=== PATIENT | female | born 1955 | race Caucasian/White ===

== ENCOUNTER 2018-07-27 18:00 | Emergency (ER) | payer OTHER ==
[~2018-07-27] VITALS: Ht 160 cm; Wt 62.7 kg
--- NOTE | 2018-07-27 18:23 | NUR ---
pt refusing blood draw and refusing to provide urine sample.
--- NOTE | 2018-07-27 18:33 | NUR ---
One bag with pt belongings locked in secure storage.
--- NOTE | 2018-07-27 18:37 | NUR ---
pt presents with c/o of wanting to be 'euthanized.' pt reports she does not want to live anymore because she has chronic back pain. pt talks about the of her mother and is very tearful. pt has the smell of alcohol on her breath and reports that she has been drinking wine today in an attempt to kill herself. pt is uncooperative. pt has 3 superficial self inflicted cuts on the left arm/wrist. pt has been secured in room with metal godoy in the down position with a sitter at bedside.
--- NOTE | 2018-07-27 18:45 | NUR ---
SUICIDE/SECURITY MEAL TRAY ORDERED FOR PT
--- NOTE | 2018-07-27 18:58 | NUR ---
preceptor rn: pt finally allowed phlembotomy to collect blood, still refusing to provide ua. sitter at doorway, bedside report to GOPAL Schwab pt care transferred at this time.
[2018-07-27 19:04] LABS: BASOPHILS # (AUTO) 0.02 x10^3/uL (0-0.1); BASOPHILS % (AUTO) 1 % (0-1); EOSINOPHILS % (AUTO) 0 % (1-7); LYMPHOCYTES # (AUTO) 1.76 x10^3/uL (1-3.4); LYMPHOCYTES % (AUTO) 38 % (22-44); MD NO; MEAN CORPUSCULAR HEMOGLOBIN 34.1 pg (27.0-34.8); MEAN CORPUSCULAR HGB CONC 32.6 g/dL (32.4-35.8); MEAN CORPUSCULAR VOLUME 104.7 fL (80-100); MEAN PLATELET VOLUME 7.6 fL (7.4-10.4); MONOCYTES # (AUTO) 0.25 x10^3/uL (0.2-0.8); MONOCYTES % (AUTO) 5 % (2-9); NEUTROPHILS # (AUTO) 2.57 x10^3/uL (1.8-6.8); NEUTROPHILS % (AUTO) 56 % (42-75); PLATELET COUNT 137 x10^3/uL (130-400); RED BLOOD COUNT 4.67 x10^6/uL (3.82-5.3); RED CELL DISTRIBUTION WIDTH 16.6 % (9.6-15.2)
[2018-07-27 19:12] LABS: ALBUMIN 3.3 g/dL (3.4-5.0); CALCIUM 9.1 mg/dL (8.5-10.1); CHLORIDE 108 mmol/L (98-107)
--- NOTE | 2018-07-27 19:16 | NUR ---
report from kelsey holliday refused to provide urine sample
[2018-07-27 19:26] LABS: ALANINE AMINOTRANSFERASE 30 U/L (12-78); ALKALINE PHOSPHATASE 121 U/L (45-117); ANION GAP 12 mmol/L (5-15); BILIRUBIN,TOTAL 1.1 mg/dL (0.2-1.0); CREATININE 0.64 mg/dL (0.55-1.02); TOTAL PROTEIN 6.9 g/dL (6.4-8.2)
[2018-07-27 19:27] LABS: SALICYLATE LEVEL < 1.7 mg/dL (2.8-20.0)
[2018-07-27] MEDS ORDERED: DIPH,PERTUSS(ACELL),TET VAC/PF 0.5 ML IM-VACC ONE ×2 (19:27→19:30)
[2018-07-27] MEDS ORDERED: LIDOCAINE-MPF 1%, 2ML ONE (19:27)
[2018-07-27] MEDS ORDERED: OXYcodone/APAP 5/325MG TABLET ONE (19:27)
[2018-07-27] MEDS ORDERED: LIDOCAINE-MPF 1%, 5ML ONE (19:28)
[2018-07-27] MEDS ORDERED: LIDOCAINE-MPF 1%, 5ML INFIL ONE (19:30)
[2018-07-27] MEDS ORDERED: OXYcodone/APAP 10/325MG TABLET PO ONE (19:30)
[2018-07-27] MEDS ORDERED: OXYcodone/APAP 10/325MG TABLET ONE (19:31)
[2018-07-27] MEDS ORDERED: PLEASE ENTER ALLERGIES MC SCH (20:00)
[2018-07-27] MEDS ORDERED: LORazepam 1MG TABLET ONE (22:47)
[2018-07-27] MEDS ORDERED: POTASSIUM CHLORIDE 20 MEQ TAB.ER.PRT ONE (22:47)
[2018-07-27] MEDS ORDERED: LORazepam 1MG TABLET PO PRN (23:00)
[2018-07-27] MEDS ORDERED: POTASSIUM CHLORIDE 20 MEQ TAB.ER.PRT PO ONE (23:00)
--- NOTE | 2018-07-27 23:37 | NUR ---
pt gave cold cup of water for urine sample
--- NOTE | 2018-07-27 23:38 | NUR ---
admit md at bedside for admit
[2018-07-28] MEDS ORDERED: OXYcodone/APAP 10/325MG TABLET PO PRN
[2018-07-28] MEDS ORDERED: OXYcodone/APAP 10/325MG TABLET ONE (00:09)
[2018-07-28 01:39] VITALS: BP 152/70
--- NOTE | 2018-07-28 01:40 | NUR ---
report to cornelio pt to 384 with tech
[2018-07-28] MEDS ORDERED: ESOM2.5S PO (02:01)
[2018-07-29] MEDS ORDERED: ESOM20CA57 PO (10:59)
[2018-07-29] MEDS ORDERED: BUSP5TAB2 PO (10:59)
[2018-07-29] MEDS ORDERED: PRIM50TA34 PO (10:59)
[2018-07-29] MEDS ORDERED: LEVO25TA2 PO (10:59)
== END 2018-07-28 01:47 ==
LOC: ED 20:00 → EDIP 23:05 → UNDOADMIN 23:05 → ED 07-28 01:47
DX: S61.512A Laceration without foreign body of left wrist, initial encounter (principal); R45.851 Suicidal ideations; F10.129 Alcohol abuse with intoxication, unspecified; F41.9 Anxiety disorder, unspecified; X58.XXXA Exposure to other specified factors, initial encounter; Y93.89 Activity, other specified; Y92.89 Other specified places as the place of occurrence of the external cause; Y99.8 Other external cause status
CPT/HCPCS: 12041; 36415; 80053; 80307; 82607; 84443; 85025; 99285

== ENCOUNTER 2018-08-18 12:52 | Emergency (ER) | payer MEDICAID, MEDICARE ==
[~2018-08-18] VITALS: Ht 160 cm; Wt 53.9 kg
[~2018-08-18 12:52] MED LIST: BUSP5TAB2 PO; DULO30CA2 PO; ESOM2.5S PO; ESOM20CA57 PO; HYDR50CA2 PO; LEVO25TA2 PO; PANT40TA5 PO; PRIM50TA34 PO
[2018-08-18 12:55] VITALS: BP 141/72
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
--- NOTE | 2018-08-18 13:45 | NUR ---
PATIENT AMB WITH STEADY GAIT TO BATHROOM, SMALL AMOUNT OF URINE COLLECTED AND WALKED TO LAB. PATIENT BACK TO BED, SITTER RAMOS AT DOORWAY WITH PATIENT IN SIGHT, ROHITH.
[2018-08-18 14:07] LABS: BASOPHILS # (AUTO) 0.02 x10^3/uL (0-0.1); BASOPHILS % (AUTO) 0 % (0-1); EOSINOPHILS # (AUTO) 0.04 x10^3/uL (0-0.4); EOSINOPHILS % (AUTO) 1 % (1-7); LYMPHOCYTES # (AUTO) 2.41 x10^3/uL (1-3.4); LYMPHOCYTES % (AUTO) 44 % (22-44); MD NO; MEAN CORPUSCULAR HEMOGLOBIN 33.7 pg (27.0-34.8); MEAN CORPUSCULAR HGB CONC 33.3 g/dL (32.4-35.8); MEAN CORPUSCULAR VOLUME 101.3 fL (80-100); MEAN PLATELET VOLUME 7.4 fL (7.4-10.4); MONOCYTES # (AUTO) 0.64 x10^3/uL (0.2-0.8); MONOCYTES % (AUTO) 12 % (2-9); NEUTROPHILS # (AUTO) 2.39 x10^3/uL (1.8-6.8); NEUTROPHILS % (AUTO) 43 % (42-75); PLATELET COUNT 126 x10^3/uL (130-400); RED BLOOD COUNT 4.69 x10^6/uL (3.82-5.3); RED CELL DISTRIBUTION WIDTH 15.6 % (9.6-15.2)
[2018-08-18 14:13] LABS: AMPHETAMINE SCREEN, URINE Negative (Negative); BARBITURATE SCREEN, URINE Positive (Negative); BENZODIAZEPINE SCREEN, URINE Negative (Negative); CANNABINOID SCREEN, URINE Negative (Negative); COCAINE SCREEN, URINE Negative (Negative); METHADONE SCREEN, URINE Negative (Negative); OPIATE SCREEN, URINE Negative (Negative)
[2018-08-18 14:14] LABS: ALBUMIN 3.3 g/dL (3.4-5.0); ANION GAP 8 mmol/L (5-15); CALCIUM 8.7 mg/dL (8.5-10.1); CHLORIDE 107 mmol/L (98-107)
[2018-08-18 14:17] LABS: ALANINE AMINOTRANSFERASE 33 U/L (12-78); ALKALINE PHOSPHATASE 215 U/L (45-117); BILIRUBIN,TOTAL 1.6 mg/dL (0.2-1.0); CREATININE 0.84 mg/dL (0.55-1.02); TOTAL PROTEIN 6.7 g/dL (6.4-8.2)
[2018-08-18 14:20] LABS: SALICYLATE LEVEL < 1.7 mg/dL (2.8-20.0)
--- NOTE | 2018-08-18 14:49 | NUR ---
BREAK RN FOR PRIMARY RN FRANDY. PT RESTING IN POSITION OF COMFORT WITH EYES CLOSED, RESP REGULAR, EVEN, UNLABORED, AROUSES EASILY TO VOICE. SAFE AND SECURE ENVIRONMENT PROVIDED. SITTER AT DOOR FOR CONTINUOUS SAFETY OBSERVATION. FALL PRECAUTIONS IN PLACE.
--- NOTE | 2018-08-18 15:14 | NUR ---
REPORT AND CARE BACK TO PRIMARY GOPAL WISE
--- NOTE | 2018-08-18 16:02 | NUR ---
REPORT TO Antonino BRADFORD RN. PATIENT SLEEPING IN [facility] AT THIS TIME, VISIBLE CHEST RISE AND FALL, NADN. AWAITING TRANSPORT.
--- NOTE | 2018-08-18 16:36 | NUR ---
PATIENT TRANSFERRED/ADMITTED TO 3E VIA WHEELCHAIR AT THIS TIME.
== END 2018-08-18 16:38 | disposition home or self-care (01) ==
LOC: ED 15:33
DX: R45.851 Suicidal ideations (principal); F32.9 Major depressive disorder, single episode, unspecified; K21.9 Gastro-esophageal reflux disease without esophagitis; E03.9 Hypothyroidism, unspecified; G89.29 Other chronic pain
CPT/HCPCS: 36415; 80053; 80307; 85025; 99284

== ENCOUNTER 2018-08-23 21:38 | Inpatient (IN) | payer MEDICARE, MEDICAID ==
[~2018-08-23] VITALS: Ht 160 cm; Wt 54.6 kg
[2018-08-23] MEDS ORDERED: DOCUSATE 100 MG CAPSULE PO PRN (22:30)
[2018-08-23] MEDS ORDERED: PLEASE ENTER HEIGHT AND WEIGHT MC SCH (23:00)
[2018-08-24 00:09] VITALS: BP 180/99
[2018-08-24] MEDS ORDERED: HYDROXYZINE PAMOATE 25MG CAP ONE (00:24)
[2018-08-24] MEDS: ONDANSETRON 2MG/ML, 2ML IVPush PRN (00:28)
[2018-08-24] MEDS: HYDROXYZINE PAMOATE 50MG CAP PO PRN (00:30)
[2018-08-24] MEDS ORDERED: MORPHINE SULFATE 4 MG/ML, 1ML ONE (03:09)
[2018-08-24] MEDS ORDERED: MORPHINE SULFATE 4 MG/ML, 1ML IV ONE (03:30)
[2018-08-24] MEDS ORDERED: LORazepam 2 MG/ML, 1ML IVPush ONE (04:00)
[2018-08-24] MEDS ORDERED: MORPHINE SULFATE 4 MG/ML, 1ML IVPush PRN (04:30)
[2018-08-24 05:07] LABS: BASOPHILS # (AUTO) 0.02 x10^3/uL (0-0.1); BASOPHILS % (AUTO) 0 % (0-1); EOSINOPHILS % (AUTO) 0 % (1-7); LYMPHOCYTES # (AUTO) 1.17 x10^3/uL (1-3.4); LYMPHOCYTES % (AUTO) 21 % (22-44); MD NO; MEAN CORPUSCULAR HEMOGLOBIN 33.6 pg (27.0-34.8); MEAN CORPUSCULAR HGB CONC 33.4 g/dL (32.4-35.8); MEAN CORPUSCULAR VOLUME 100.7 fL (80-100); MEAN PLATELET VOLUME 8.1 fL (7.4-10.4); MONOCYTES # (AUTO) 0.61 x10^3/uL (0.2-0.8); MONOCYTES % (AUTO) 11 % (2-9); NEUTROPHILS % (AUTO) 68 % (42-75); PLATELET COUNT 133 x10^3/uL (130-400); RED BLOOD COUNT 5.53 x10^6/uL (3.82-5.3); RED CELL DISTRIBUTION WIDTH 15.2 % (9.6-15.2)
[2018-08-24 05:15] LABS: ALBUMIN 3.8 g/dL (3.4-5.0); ANION GAP 14 mmol/L (5-15); CALCIUM 9.7 mg/dL (8.5-10.1); CHLORIDE 103 mmol/L (98-107)
[2018-08-24 05:19] LABS: ALANINE AMINOTRANSFERASE 35 U/L (12-78); ALKALINE PHOSPHATASE 162 U/L (45-117); BILIRUBIN,TOTAL 3.4 mg/dL (0.2-1.0); CREATININE 0.85 mg/dL (0.55-1.02); TOTAL PROTEIN 7.7 g/dL (6.4-8.2)
[2018-08-24] MEDS: LEVOTHYROXINE 25 MCG TABLET PO SCH (06:33)
[2018-08-24] MEDS: PANTOPROZOLE 40MG TABLET PO SCH (06:33)
[2018-08-24] MEDS ORDERED: POTASSIUM CHLORIDE 40 MEQ in SODIUM CHLORIDE 0.9% 500 ML IV ONE (07:00)
[2018-08-24 08:59] LABS: HEMOGLOBIN A1C 4.5 % (4.2-6.3)
[2018-08-24] MEDS ORDERED: MAGNESIUM SULFATE PMX 2GM/50ML 50 ML IV ONE (09:00)
[2018-08-24 09:09] VITALS: BP 163/87
[2018-08-24] MEDS: BUSPIRONE 5 MG TABLET PO SCH ×3 (09:36→22:04)
[2018-08-24] MEDS: PRIMIDONE 50 MG TABLET PO SCH (09:36)
[2018-08-24] MEDS: DULOXETINE 30 MG CAPSULE.DR PO SCH (09:36)
[2018-08-24] MEDS ORDERED: POTASSIUM CHLORIDE 20 MEQ in SODIUM CHLORIDE 0.9% 1,000 ML IV SCH (14:00)
[2018-08-24] MEDS ORDERED: SODIUM CHLORIDE 0.9% 1,000 ML IV SCH (14:00)
[2018-08-24 14:50] VITALS: BP 112/74
[2018-08-24] MEDS: MORPHINE SULFATE 4 MG/ML, 1ML IVPush PRN ×2 (17:19→22:54)
[2018-08-24] MEDS: MAGNESIUM SULFATE PMX 2GM/50ML 50 ML IV SCH (18:01)
[2018-08-24 19:39] VITALS: BP 105/75
[2018-08-25] MEDS: MAGNESIUM SULFATE PMX 2GM/50ML 50 ML IV SCH (00:10)
[2018-08-25 02:20] VITALS: BP 97/66
[2018-08-25] MEDS: POTASSIUM CHLORIDE 20 MEQ in SODIUM CHLORIDE 0.9% 1,000 ML IV SCH (05:25)
[2018-08-25] MEDS: PANTOPROZOLE 40MG TABLET PO SCH ×2 (05:26→05:29)
[2018-08-25] MEDS: LEVOTHYROXINE 25 MCG TABLET PO SCH ×2 (05:26→05:29)
[2018-08-25 05:42] LABS: CHLORIDE 106 mmol/L (98-107)
[2018-08-25 05:45] LABS: MEAN CORPUSCULAR HEMOGLOBIN 34.5 pg (27.0-34.8); MEAN CORPUSCULAR HGB CONC 33.4 g/dL (32.4-35.8); MEAN CORPUSCULAR VOLUME 103.3 fL (80-100); MEAN PLATELET VOLUME 8.1 fL (7.4-10.4); PLATELET COUNT 123 x10^3/uL (130-400); RED BLOOD COUNT 4.65 x10^6/uL (3.82-5.3); RED CELL DISTRIBUTION WIDTH 15.5 % (9.6-15.2)
[2018-08-25 05:51] LABS: ALANINE AMINOTRANSFERASE 27 U/L (12-78); ALBUMIN 2.8 g/dL (3.4-5.0); ALKALINE PHOSPHATASE 120 U/L (45-117); ANION GAP 10 mmol/L (5-15); BILIRUBIN,TOTAL 1.8 mg/dL (0.2-1.0); CALCIUM 8.3 mg/dL (8.5-10.1); CREATININE 0.74 mg/dL (0.55-1.02); TOTAL PROTEIN 5.9 g/dL (6.4-8.2)
[2018-08-25 06:59] VITALS: BP 100/68
[2018-08-25] MEDS: BUSPIRONE 5 MG TABLET PO SCH ×3 (08:35→21:00)
[2018-08-25] MEDS: DULOXETINE 30 MG CAPSULE.DR PO SCH (08:35)
[2018-08-25] MEDS: PRIMIDONE 50 MG TABLET PO SCH (08:35)
[2018-08-25 08:47] LABS: MD YES
[2018-08-25 08:49] LABS: BASOS#(MANUAL) 0.07 x10^3/uL (0-0.1); BASOS% (MANUAL) 1 % (0-1); EOS#(MANUAL) 0.07 x10^3/uL (0.0-0.4); EOS% (MANUAL) 1 % (1-7); LYMPH#(MANUAL) 2.15 x10^3/uL (1-3.4); LYMPHS% (MANUAL) 33 % (22-44); MONOS#(MANUAL) 0.52 x10^3/uL (0.3-2.7); MONOS% (MANUAL) 8 % (2-9); REACTIVE LYMPHS # (MANUAL) 0.46 x10^3/uL (0-0); REACTIVE LYMPHS % (MANUAL) 7 % (0-0); SEG#(MANUAL) 3.25 x10^3/uL (1.8-6.8); SEGS% (MANUAL) 50 % (42-75)
[2018-08-25 08:50] LABS: ANISOCYTOSIS 1+
[2018-08-25 08:51] LABS: <PLATELET ESTIMATE> DECREASED; <PLT MORPHOLOGY> NORMAL PLT MORPH; POLYCHROMASIA 1+
[2018-08-25] MEDS: MORPHINE SULFATE 4 MG/ML, 1ML IVPush PRN ×3 (09:11→20:20)
[2018-08-25] MEDS ORDERED: FENTANYL PF 100 MCG/2ML ONE (12:04)
[2018-08-25] MEDS ORDERED: MIDAZOLAM 1 MG/ML, 2ML ONE (12:04)
[2018-08-25] MEDS ORDERED: KETOROLAC 30 MG/1 ML ONE (13:19)
[2018-08-25] MEDS ORDERED: SUCCINYLCHOLINE 20 MG/ML, 10ML ONE (13:19)
[2018-08-25] MEDS ORDERED: ONDANSETRON 2MG/ML, 2ML ONE (13:45)
[2018-08-25] MEDS ORDERED: PROPOFOL 10 MG/ML, 20ML ONE (13:45)
[2018-08-25] MEDS ORDERED: DEXAMETHASONE 4 MG/ML, 1ML ONE (13:45)
[2018-08-25] MEDS ORDERED: EPHEDRINE 50 MG/ML, 1ML ONE (13:45)
[2018-08-25] MEDS ORDERED: ONDANSETRON 2MG/ML, 2ML IV PRN (14:00)
[2018-08-25] MEDS ORDERED: hydrALAzine 20 MG/ML, 1ML IV PRN (14:00)
[2018-08-25] MEDS ORDERED: FENTANYL PF 100 MCG/2ML IV PRN (14:00)
[2018-08-25] MEDS ORDERED: ALBUTEROL/IPRATROPIUM 2.5MG/0.5MG, 3 ML NPPB PRN (14:00)
[2018-08-25] MEDS ORDERED: MIDAZOLAM 1 MG/ML, 2ML IV PRN (14:00)
[2018-08-25] MEDS ORDERED: PROMETHAZINE 25 MG/ML, 1ML IV PRN (14:00)
[2018-08-25] MEDS ORDERED: OXYcodone 5 MG/5 ML ORAL.SOL UDC PO PRN (14:00)
[2018-08-25] MEDS ORDERED: HYDROmorphone 2 MG/ML, 1ML IVPush PRN (14:00)
[2018-08-25 19:08] VITALS: BP 196/74
[2018-08-25] MEDS: hydrALAzine 20 MG/ML, 1ML IV PRN (19:16)
[2018-08-25 20:28] VITALS: BP 165/92
[2018-08-25 21:04] VITALS: BP 161/73
[2018-08-25] MEDS: ONDANSETRON 2MG/ML, 2ML IVPush PRN (21:27)
[2018-08-25] MEDS ORDERED: MAALOX/HYOSCYAMINE/LIDOCAINE 45 ML BTL PO ONE (21:30)
[2018-08-25] MEDS ORDERED: MORPHINE SULFATE 4 MG/ML, 1ML IVPush PRN (21:30)
[2018-08-25 21:51] LABS: TROPONIN I < 0.015 ng/mL (0.000-0.045)
[2018-08-25] MEDS ORDERED: OMNIPAQUE 350 MG/ML, 100ML BOTTLE ONE (22:10)
[2018-08-26] MEDS: MORPHINE SULFATE 4 MG/ML, 1ML IVPush PRN ×6 (00:19→21:27)
[2018-08-26 01:07] VITALS: BP 163/80
[2018-08-26] MEDS: POTASSIUM CHLORIDE 20 MEQ in SODIUM CHLORIDE 0.9% 1,000 ML IV SCH ×3 (03:30→23:22)
[2018-08-26 04:43] LABS: BASOPHILS # (AUTO) 0.03 x10^3/uL (0-0.1); BASOPHILS % (AUTO) 0 % (0-1); EOSINOPHILS % (AUTO) 0 % (1-7); LYMPHOCYTES # (AUTO) 1.93 x10^3/uL (1-3.4); LYMPHOCYTES % (AUTO) 32 % (22-44); MD NO; MEAN CORPUSCULAR HEMOGLOBIN 34.7 pg (27.0-34.8); MEAN CORPUSCULAR HGB CONC 33.7 g/dL (32.4-35.8); MEAN CORPUSCULAR VOLUME 103.1 fL (80-100); MEAN PLATELET VOLUME 7.9 fL (7.4-10.4); MONOCYTES # (AUTO) 0.83 x10^3/uL (0.2-0.8); MONOCYTES % (AUTO) 14 % (2-9); NEUTROPHILS # (AUTO) 3.18 x10^3/uL (1.8-6.8); NEUTROPHILS % (AUTO) 53 % (42-75); PLATELET COUNT 131 x10^3/uL (130-400); RED BLOOD COUNT 4.51 x10^6/uL (3.82-5.3)
[2018-08-26 04:49] LABS: ANION GAP 7 mmol/L (5-15); CALCIUM 8.5 mg/dL (8.5-10.1); CHLORIDE 108 mmol/L (98-107)
[2018-08-26 04:52] LABS: ALANINE AMINOTRANSFERASE 28 U/L (12-78); ALKALINE PHOSPHATASE 119 U/L (45-117); CREATININE 0.74 mg/dL (0.55-1.02); TOTAL PROTEIN 5.9 g/dL (6.4-8.2)
[2018-08-26] MEDS: PANTOPROZOLE 40MG TABLET PO SCH (06:23)
[2018-08-26] MEDS: LEVOTHYROXINE 25 MCG TABLET PO SCH (06:24)
[2018-08-26 07:09] VITALS: BP 145/71
[2018-08-26] MEDS: PRIMIDONE 50 MG TABLET PO SCH (08:33)
[2018-08-26] MEDS: DULOXETINE 30 MG CAPSULE.DR PO SCH (08:33)
[2018-08-26] MEDS: BUSPIRONE 5 MG TABLET PO SCH ×3 (08:33→21:27)
[2018-08-26] MEDS: DIPHENHYDRAMINE 50 MG/ML, 1ML IVPush PRN ×2 (08:59→17:36)
[2018-08-26 13:40] VITALS: BP 138/65
[2018-08-26 18:44] VITALS: BP 109/60
[2018-08-26] MEDS: HYDROXYZINE PAMOATE 50MG CAP PO PRN (21:27)
[2018-08-27 01:44] VITALS: BP 125/77
[2018-08-27] MEDS: MORPHINE SULFATE 4 MG/ML, 1ML IVPush PRN ×3 (04:56→13:33)
[2018-08-27] MEDS: PANTOPROZOLE 40MG TABLET PO SCH (04:56)
[2018-08-27] MEDS: LEVOTHYROXINE 25 MCG TABLET PO SCH (04:56)
[2018-08-27 07:23] VITALS: BP 184/84
[2018-08-27] MEDS: hydrALAzine 20 MG/ML, 1ML IV PRN (07:40)
[2018-08-27] MEDS: DULOXETINE 30 MG CAPSULE.DR PO SCH (07:40)
[2018-08-27] MEDS: PRIMIDONE 50 MG TABLET PO SCH (07:40)
[2018-08-27] MEDS: BUSPIRONE 5 MG TABLET PO SCH ×2 (07:41→16:39)
[2018-08-27 07:45] LABS: ALANINE AMINOTRANSFERASE 25 U/L (12-78); ALBUMIN 2.5 g/dL (3.4-5.0); ANION GAP 5 mmol/L (5-15); CALCIUM 8.1 mg/dL (8.5-10.1); CHLORIDE 113 mmol/L (98-107); CREATININE 0.43 mg/dL (0.55-1.02)
[2018-08-27 07:48] LABS: ALKALINE PHOSPHATASE 98 U/L (45-117); BILIRUBIN,TOTAL 1.4 mg/dL (0.2-1.0); TOTAL PROTEIN 5.2 g/dL (6.4-8.2)
[2018-08-27] MEDS: DIPHENHYDRAMINE 50 MG/ML, 1ML IVPush PRN (09:25)
[2018-08-27] MEDS: POTASSIUM CHLORIDE 20 MEQ in SODIUM CHLORIDE 0.9% 1,000 ML IV SCH ×2 (09:25→16:59)
[2018-08-27 13:02] VITALS: BP 120/69
[2018-08-27] MEDS ORDERED: OXYC10SY PO (15:03)
[2018-08-27] MEDS ORDERED: OXYcodone IR 5MG TABLET PO ONE (17:00)
== END 2018-08-27 21:30 | disposition home or self-care (01) | DRG 393 ==
LOC: 3NE 21:49
PROVIDERS: ADMIT Internal Medicine; ATTEND Internal Medicine
PROC: 0DC58ZZ Extirpation of Matter from Esophagus, Via Natural or Artificial Opening Endoscopic (ICD-10-PCS; 2018-08-25)
PROC: 0DD48ZX Extraction of Esophagogastric Junction, Via Natural or Artificial Opening Endoscopic, Diagnostic (ICD-10-PCS; principal; 2018-08-25 15:00)
DX: T18.198A Other foreign object in esophagus causing other injury, initial encounter (principal); K83.1 Obstruction of bile duct; R45.851 Suicidal ideations; K76.6 Portal hypertension; K83.8 Other specified diseases of biliary tract; F32.9 Major depressive disorder, single episode, unspecified; E03.9 Hypothyroidism, unspecified; E83.42 Hypomagnesemia; E87.5 Hyperkalemia; E87.6 Hypokalemia; F10.20 Alcohol dependence, uncomplicated; F41.8 Other specified anxiety disorders; G89.29 Other chronic pain; K21.9 Gastro-esophageal reflux disease without esophagitis; K62.1 Rectal polyp; K70.30 Alcoholic cirrhosis of liver without ascites; K70.10 Alcoholic hepatitis without ascites; X58.XXXA Exposure to other specified factors, initial encounter; Y93.89 Activity, other specified; Y92.89 Other specified places as the place of occurrence of the external cause; Y99.8 Other external cause status; Z76.5 Malingerer [conscious simulation]; Z98.84 Bariatric surgery status; K72.90 Hepatic failure, unspecified without coma
CPT/HCPCS: 36415; 74177; 74181; 80053; 83036; 83735; 84484; 85025; 88305; 93005; G0378; J1100; J1885; J2250; J2405; J2704; J3010; J3480; Q9967; J0330; J0360; J1200; J2060; J2270; J3475; J7030; J7040

== ENCOUNTER 2019-04-22 04:55 | Inpatient (IN) | payer MEDICARE, MEDICAID ==
[~2019-04-22] VITALS: Ht 160 cm; Wt 70.7 kg
[~2019-04-22 04:55] MED LIST changes: +OXYC10SY PO
[2019-04-22] MEDS ORDERED: SODIUM CHLORIDE FLUSH 10ML SYR IVF ONE (05:30)
[2019-04-22 05:38] LABS: BASOPHILS # (AUTO) 0.02 x10^3/uL (0-0.1); BASOPHILS % (AUTO) 0 % (0-1); EOSINOPHILS # (AUTO) 0.03 x10^3/uL (0-0.4); EOSINOPHILS % (AUTO) 0 % (1-7); LYMPHOCYTES # (AUTO) 1.28 x10^3/uL (1-3.4); LYMPHOCYTES % (AUTO) 12 % (22-44); MD NO; MEAN CORPUSCULAR HGB CONC 33.1 g/dL (32.4-35.8); MEAN CORPUSCULAR VOLUME 96.6 fL (80-100); MEAN PLATELET VOLUME 7.8 fL (7.4-10.4); MONOCYTES % (AUTO) 5 % (2-9); NEUTROPHILS # (AUTO) 9.12 x10^3/uL (1.8-6.8); NEUTROPHILS % (AUTO) 83 % (42-75); PLATELET COUNT 187 x10^3/uL (130-400); RED BLOOD COUNT 3.96 x10^6/uL (3.82-5.3); RED CELL DISTRIBUTION WIDTH 17.3 % (9.6-15.2)
[2019-04-22 05:47] LABS: INTERNATIONAL NORMALIZED RATIO 1.08 (0.93-1.1); PROTHROMBIN TIME 11.5 Seconds (9.6-11.5)
[2019-04-22 05:48] LABS: ALANINE AMINOTRANSFERASE 35 U/L (12-78); ALBUMIN 3.4 g/dL (3.4-5.0); ANION GAP 8 mmol/L (5-15); CALCIUM 8.9 mg/dL (8.5-10.1); CHLORIDE 113 mmol/L (98-107)
[2019-04-22 05:50] LABS: ALKALINE PHOSPHATASE 130 U/L (45-117); CREATINE KINASE, TOTAL 100 U/L (26-192); TOTAL PROTEIN 6.8 g/dL (6.4-8.2)
--- NOTE | 2019-04-22 06:30 | NUR ---
Pt continues to sleep in room but is arousable to voice. Espinoza placed.
[2019-04-22] MEDS ORDERED: SODIUM CHLORIDE FLUSH 10ML SYR IVF PRN (07:00)
--- NOTE | 2019-04-22 07:00 | NUR ---
assumed care of pt. jason Guzmán RN. pt here for fall [employer] and L hip pain. per report, pt took her own oxycodone [employer] and was medicated with fentanyl and versed [employer]. pt is vey drowsy and eliel O2. pt is c/o intermittent spasms to L hip. posiioning for comfot and ice pack placed. pt awaiting admi. no family at bedside. no apprent distress
--- NOTE | 2019-04-22 07:22 | NUR ---
hospitalist has been to bedside for eval. mccloud in place to drainage. pt updated on POC
--- NOTE | 2019-04-22 07:53 | NUR ---
bed assignment has been recieved. attempting to call report
--- NOTE | 2019-04-22 08:03 | NUR ---
attempting again to call report
--- NOTE | 2019-04-22 08:13 | NUR ---
report called to Lynn HERRON
--- NOTE | 2019-04-22 08:50 | NUR ---
pt has been moved to floor via [facility]
[2019-04-22 09:00] VITALS: BP 118/64
[2019-04-22] MEDS: BUSPIRONE 5 MG TABLET PO SCH ×3 (09:00→21:51)
[2019-04-22] MEDS ORDERED: PRIMIDONE 50 MG TABLET PO SCH (09:00)
[2019-04-22] MEDS: BACLOFEN 10 MG TABLET PO SCH ×2 (09:00→21:51)
[2019-04-22] MEDS: LACTULOSE 10 GM/15 ML UDC PO SCH ×2 (09:00→21:51)
[2019-04-22] MEDS: DULOXETINE 30 MG CAPSULE.DR PO SCH (09:00)
[2019-04-22] MEDS: SODIUM CHLORIDE 0.9% 1,000 ML IV SCH (09:29)
[2019-04-22] MEDS: morphine SULFATE 10 MG/ML, 1ML IVPush PRN ×2 (09:33→19:10)
[2019-04-22] MEDS ORDERED: NEOSPORIN OINT, 15GM ONE (10:56)
[2019-04-22] MEDS ORDERED: FENTANYL PF 250 MCG/5ML ONE (11:00)
[2019-04-22] MEDS ORDERED: MIDAZOLAM 1 MG/ML, 2ML ONE (11:00)
[2019-04-22] MEDS ORDERED: NEOSPORIN OINT, 15GM TP ONE (12:15)
[2019-04-22] MEDS ORDERED: DEXAMETHASONE 4 MG/ML, 1ML ONE (12:33)
[2019-04-22] MEDS ORDERED: CEFAZOLIN 1,000 MG ONE (12:33)
[2019-04-22] MEDS ORDERED: ONDANSETRON 2MG/ML, 2ML ONE (12:33)
[2019-04-22] MEDS ORDERED: FENTANYL PF 100 MCG/2ML ONE ×2 (12:47→13:25)
[2019-04-22] MEDS ORDERED: OXYcodone 5 MG/5 ML ORAL.SOL UDC ONE ×2 (12:47→13:03)
[2019-04-22] MEDS ORDERED: hydrALAzine 20 MG/ML, 1ML IV PRN (13:00)
[2019-04-22] MEDS ORDERED: MEPERIDINE/PF 25MG/ML,1ML IVPush PRN (13:00)
[2019-04-22] MEDS ORDERED: METOPROLOL 1 MG/ML, 5ML IV PRN (13:00)
[2019-04-22] MEDS ORDERED: ALBUTEROL/IPRATROPIUM 2.5MG/0.5MG, 3 ML NPPB PRN (13:00)
[2019-04-22] MEDS ORDERED: HYDROmorphone 2 MG/ML, 1ML IVPush PRN (13:00)
[2019-04-22] MEDS ORDERED: MIDAZOLAM 1 MG/ML, 2ML IV PRN (13:00)
[2019-04-22] MEDS ORDERED: OXYcodone 5 MG/5 ML ORAL.SOL UDC PO PRN (13:00)
[2019-04-22] MEDS ORDERED: PROMETHAZINE 25 MG/ML, 1ML IV PRN (13:00)
[2019-04-22] MEDS: FENTANYL PF 100 MCG/2ML IV PRN ×3 (13:01→13:27)
[2019-04-22] MEDS ORDERED: ACETAMINOPHEN 650 MG/20.3 ML UDC ONE (13:03)
[2019-04-22] MEDS: ACETAMINOPHEN 325 MG TABLET PO PRN ×3 (13:19→21:51)
[2019-04-22 14:30] VITALS: BP 102/43
[2019-04-22] MEDS ORDERED: SUCCINYLCHOLINE 20 MG/ML, 10ML ONE (14:37)
[2019-04-22] MEDS ORDERED: EPHEDRINE 50 MG/ML, 1ML ONE (14:37)
[2019-04-22 19:23] VITALS: BP 107/67
[2019-04-22] MEDS ORDERED: OXYC5TAB2 PO (20:27)
[2019-04-22] MEDS ORDERED: FLUO40CA2 PO (20:30)
[2019-04-22] MEDS ORDERED: SUCR1TAB33 PO (20:50)
[2019-04-22] MEDS: CEFAZOLIN PMX 1GM/50ML 50 ML IVPB SCH (21:51)
[2019-04-22] MEDS: PRIMIDONE 50 MG TABLET PO SCH (21:54)
[2019-04-23 01:32] VITALS: BP 112/55
[2019-04-23] MEDS: ACETAMINOPHEN 325 MG TABLET PO PRN (02:22)
[2019-04-23] MEDS: morphine SULFATE 10 MG/ML, 1ML IVPush PRN ×5 (02:24→19:48)
[2019-04-23] MEDS: SODIUM CHLORIDE 0.9% 1,000 ML IV SCH ×2 (02:30→14:00)
[2019-04-23 05:19] LABS: ANION GAP 6 mmol/L (5-15); CALCIUM 8.3 mg/dL (8.5-10.1); CHLORIDE 114 mmol/L (98-107)
[2019-04-23 05:21] LABS: CREATININE 0.59 mg/dL (0.55-1.02)
[2019-04-23 06:00] LABS: BASOPHILS # (AUTO) 0.01 x10^3/uL (0-0.1); BASOPHILS % (AUTO) 0 % (0-1); EOSINOPHILS % (AUTO) 0 % (1-7); LYMPHOCYTES # (AUTO) 1.12 x10^3/uL (1-3.4); LYMPHOCYTES % (AUTO) 17 % (22-44); MD SCAN; MEAN CORPUSCULAR HEMOGLOBIN 31.8 pg (27.0-34.8); MEAN CORPUSCULAR HGB CONC 32.7 g/dL (32.4-35.8); MEAN CORPUSCULAR VOLUME 97.2 fL (80-100); MONOCYTES # (AUTO) 0.67 x10^3/uL (0.2-0.8); MONOCYTES % (AUTO) 10 % (2-9); NEUTROPHILS % (AUTO) 73 % (42-75); PLATELET COUNT 107 x10^3/uL (130-400); RED BLOOD COUNT 2.81 x10^6/uL (3.82-5.3)
[2019-04-23] MEDS: CEFAZOLIN PMX 1GM/50ML 50 ML IVPB SCH (06:27)
[2019-04-23] MEDS: LEVOTHYROXINE 25 MCG TABLET PO SCH (06:28)
[2019-04-23] MEDS: PANTOPROZOLE 40MG TABLET PO SCH (06:28)
[2019-04-23 07:36] VITALS: BP 102/61
[2019-04-23] MEDS ORDERED: HEPARIN 5,000 UNITS/ML, 1ML SQ SCH (08:00)
[2019-04-23] MEDS ORDERED: ENOXAPARIN 40 MG/0.4 ML SQ SCH (08:30)
[2019-04-23] MEDS: DULOXETINE 30 MG CAPSULE.DR PO SCH (09:00)
[2019-04-23] MEDS: BUSPIRONE 5 MG TABLET PO SCH ×3 (09:00→23:40)
[2019-04-23] MEDS: LACTULOSE 10 GM/15 ML UDC PO SCH ×2 (09:00→21:00)
[2019-04-23] MEDS: BACLOFEN 10 MG TABLET PO SCH ×2 (09:47→23:40)
[2019-04-23] MEDS: OXYcodone IR 5MG TABLET PO SCH ×3 (09:49→23:40)
[2019-04-23 12:28] VITALS: BP 114/68
[2019-04-23] MEDS: ENOXAPARIN 40 MG/0.4 ML SQ SCH (15:39)
[2019-04-23 20:35] VITALS: BP 97/52
[2019-04-23] MEDS: PRIMIDONE 50 MG TABLET PO SCH (23:42)
[2019-04-24] MEDS: SODIUM CHLORIDE 0.9% 1,000 ML IV SCH
[2019-04-24 02:56] VITALS: BP 93/58
[2019-04-24] MEDS: LEVOTHYROXINE 25 MCG TABLET PO SCH (06:34)
[2019-04-24] MEDS: PANTOPROZOLE 40MG TABLET PO SCH (06:34)
[2019-04-24 07:28] VITALS: BP 142/68
[2019-04-24] MEDS: LACTULOSE 10 GM/15 ML UDC PO SCH ×2 (09:00→21:00)
[2019-04-24] MEDS: BACLOFEN 10 MG TABLET PO SCH ×2 (09:12→21:23)
[2019-04-24] MEDS: BUSPIRONE 5 MG TABLET PO SCH ×3 (09:12→21:23)
[2019-04-24] MEDS: OXYcodone IR 5MG TABLET PO SCH ×3 (09:12→21:23)
[2019-04-24] MEDS: DULOXETINE 30 MG CAPSULE.DR PO SCH (09:13)
[2019-04-24] MEDS: OXYcodone/APAP 5/325MG TABLET PO PRN (13:30)
[2019-04-24 14:00] VITALS: BP_SYST 102; BP_SYST 142; BP_DIAS 57; BP_DIAS 68
[2019-04-24] MEDS: ENOXAPARIN 40 MG/0.4 ML SQ SCH (16:54)
[2019-04-24 20:41] VITALS: BP 98/61
[2019-04-24] MEDS: PRIMIDONE 50 MG TABLET PO SCH (21:26)
[2019-04-24 21:39] VITALS: BP 108/68
[2019-04-25 01:25] VITALS: BP 118/65
[2019-04-25] MEDS: morphine SULFATE 10 MG/ML, 1ML IVPush PRN ×2 (02:39→06:33)
[2019-04-25] MEDS: PANTOPROZOLE 40MG TABLET PO SCH (06:33)
[2019-04-25] MEDS: LEVOTHYROXINE 25 MCG TABLET PO SCH (06:33)
[2019-04-25 07:30] VITALS: BP 101/66
[2019-04-25] MEDS: BACLOFEN 10 MG TABLET PO SCH ×2 (08:08→21:17)
[2019-04-25] MEDS: OXYcodone IR 5MG TABLET PO SCH ×3 (08:08→21:18)
[2019-04-25] MEDS: BUSPIRONE 5 MG TABLET PO SCH ×3 (08:09→21:17)
[2019-04-25] MEDS: LACTULOSE 10 GM/15 ML UDC PO SCH ×2 (08:09→21:16)
[2019-04-25] MEDS: DULOXETINE 30 MG CAPSULE.DR PO SCH (08:09)
[2019-04-25] MEDS: MAGNESIUM CITRATE 300ML ORAL SOL PO PRN ×2 (12:03→16:54)
[2019-04-25 14:43] VITALS: BP 128/64
[2019-04-25] MEDS: ENOXAPARIN 40 MG/0.4 ML SQ SCH (16:53)
[2019-04-25] MEDS ORDERED: MAGNESIUM CITRATE 300ML ORAL SOL PO ONE (17:00)
[2019-04-25] MEDS ORDERED: SODIUM CHLORIDE 0.9%, 500ML IVBOLUS ONE (18:30)
[2019-04-25 18:59] VITALS: BP 109/50
[2019-04-25] MEDS: PRIMIDONE 50 MG TABLET PO SCH (21:17)
[2019-04-26] MEDS: OXYcodone/APAP 5/325MG TABLET PO PRN ×2 (00:33→10:25)
[2019-04-26 00:45] VITALS: BP 102/52
[2019-04-26] MEDS: PANTOPROZOLE 40MG TABLET PO SCH (04:58)
[2019-04-26] MEDS: LEVOTHYROXINE 25 MCG TABLET PO SCH (04:58)
[2019-04-26] MEDS: morphine SULFATE 10 MG/ML, 1ML IVPush PRN (04:59)
[2019-04-26] MEDS ORDERED: SODIUM CHLORIDE 0.9%, 500ML IVBOLUS ONE (05:30)
[2019-04-26 07:02] LABS: ANION GAP 5 mmol/L (5-15); CALCIUM 7.6 mg/dL (8.5-10.1); CHLORIDE 108 mmol/L (98-107); CREATININE 0.47 mg/dL (0.55-1.02)
[2019-04-26] MEDS ORDERED: PINK LADY ENEMA 490 ML BOTTLE PR SCH (07:30)
[2019-04-26 08:10] VITALS: BP 126/81
[2019-04-26] MEDS: DULOXETINE 30 MG CAPSULE.DR PO SCH (08:23)
[2019-04-26] MEDS: BACLOFEN 10 MG TABLET PO SCH ×2 (08:23→20:11)
[2019-04-26] MEDS: LACTULOSE 10 GM/15 ML UDC PO SCH ×2 (08:24→20:11)
[2019-04-26] MEDS: OXYcodone IR 5MG TABLET PO SCH ×3 (08:24→20:13)
[2019-04-26] MEDS: PRIMIDONE 50 MG TABLET PO SCH ×2 (08:24→20:11)
[2019-04-26] MEDS: BUSPIRONE 5 MG TABLET PO SCH ×3 (08:26→20:13)
[2019-04-26 14:30] VITALS: BP 140/76
[2019-04-26] MEDS: ENOXAPARIN 40 MG/0.4 ML SQ SCH (16:15)
[2019-04-26 19:51] VITALS: BP 112/65
[2019-04-27 00:19] VITALS: BP 136/72
[2019-04-27] MEDS: OXYcodone/APAP 5/325MG TABLET PO PRN ×2 (02:12→17:25)
[2019-04-27] MEDS: morphine SULFATE 10 MG/ML, 1ML IVPush PRN ×3 (04:26→18:34)
[2019-04-27] MEDS: PANTOPROZOLE 40MG TABLET PO SCH (05:26)
[2019-04-27] MEDS: LEVOTHYROXINE 25 MCG TABLET PO SCH (05:26)
[2019-04-27] MEDS ORDERED: BACL-19 PO (07:26)
[2019-04-27 07:30] VITALS: BP 128/61
[2019-04-27] MEDS: LACTULOSE 10 GM/15 ML UDC PO SCH ×2 (08:54→21:42)
[2019-04-27] MEDS: OXYcodone IR 5MG TABLET PO SCH ×3 (08:55→23:51)
[2019-04-27] MEDS: BACLOFEN 10 MG TABLET PO SCH ×2 (08:55→21:42)
[2019-04-27] MEDS: BUSPIRONE 5 MG TABLET PO SCH ×3 (08:55→21:42)
[2019-04-27] MEDS: DULOXETINE 30 MG CAPSULE.DR PO SCH (08:55)
[2019-04-27 12:32] VITALS: BP 104/66
[2019-04-27] MEDS: ENOXAPARIN 40 MG/0.4 ML SQ SCH (17:25)
[2019-04-27 18:58] VITALS: BP 96/45
[2019-04-28 01:24] VITALS: BP 116/69
[2019-04-28] MEDS: morphine SULFATE 10 MG/ML, 1ML IVPush PRN (04:50)
[2019-04-28] MEDS: PANTOPROZOLE 40MG TABLET PO SCH (04:58)
[2019-04-28] MEDS: LEVOTHYROXINE 25 MCG TABLET PO SCH (04:58)
[2019-04-28 05:43] LABS: BASOPHILS # (AUTO) 0.02 x10^3/uL (0-0.1); BASOPHILS % (AUTO) 0 % (0-1); EOSINOPHILS # (AUTO) 0.08 x10^3/uL (0-0.4); EOSINOPHILS % (AUTO) 2 % (1-7); LYMPHOCYTES # (AUTO) 1.28 x10^3/uL (1-3.4); LYMPHOCYTES % (AUTO) 34 % (22-44); MD NO; MEAN CORPUSCULAR HEMOGLOBIN 31.7 pg (27.0-34.8); MEAN CORPUSCULAR HGB CONC 32.9 g/dL (32.4-35.8); MEAN CORPUSCULAR VOLUME 96.3 fL (80-100); MEAN PLATELET VOLUME 7.7 fL (7.4-10.4); MONOCYTES # (AUTO) 0.55 x10^3/uL (0.2-0.8); MONOCYTES % (AUTO) 15 % (2-9); NEUTROPHILS # (AUTO) 1.86 x10^3/uL (1.8-6.8); NEUTROPHILS % (AUTO) 49 % (42-75); PLATELET COUNT 157 x10^3/uL (130-400); RED BLOOD COUNT 2.74 x10^6/uL (3.82-5.3); RED CELL DISTRIBUTION WIDTH 17.2 % (9.6-15.2)
[2019-04-28 05:44] LABS: CHLORIDE 109 mmol/L (98-107)
[2019-04-28 05:54] LABS: ALANINE AMINOTRANSFERASE 14 U/L (12-78); ALKALINE PHOSPHATASE 99 U/L (45-117); ANION GAP 5 mmol/L (5-15); BILIRUBIN,TOTAL 1.2 mg/dL (0.2-1.0); CREATININE 0.44 mg/dL (0.55-1.02); TOTAL PROTEIN 5.2 g/dL (6.4-8.2)
[2019-04-28 07:38] VITALS: BP 89/55
[2019-04-28] MEDS: OXYcodone IR 5MG TABLET PO SCH ×2 (09:00→15:51)
[2019-04-28] MEDS: PRIMIDONE 50 MG TABLET PO SCH (09:42)
[2019-04-28] MEDS: DULOXETINE 30 MG CAPSULE.DR PO SCH (09:43)
[2019-04-28] MEDS: BACLOFEN 10 MG TABLET PO SCH (09:43)
[2019-04-28] MEDS: BUSPIRONE 5 MG TABLET PO SCH ×2 (09:43→15:51)
[2019-04-28] MEDS: LACTULOSE 10 GM/15 ML UDC PO SCH (09:45)
[2019-04-28 11:11] VITALS: BP 104/62
[2019-04-28] MEDS: OXYcodone/APAP 5/325MG TABLET PO PRN (11:15)
[2019-04-28 14:41] VITALS: BP 97/61
[2019-04-28] MEDS: ENOXAPARIN 40 MG/0.4 ML SQ SCH (16:00)
[2019-04-28] MEDS ORDERED: HYDR-3245 PO ×2 (16:55→16:56)
== END 2019-04-28 17:10 | DRG 480 ==
LOC: ED 06:47 → EDIP 07:09 → 4NE 08:48
PROVIDERS: ADMIT Internal Medicine Infectious Disease; ATTEND Family Medicine
PROC: 0QS706Z Reposition Left Upper Femur with Intramedullary Internal Fixation Device, Open Approach (ICD-10-PCS; principal; 2019-04-22 12:00)
DX: S72.142A Displaced intertrochanteric fracture of left femur, initial encounter for closed fracture (principal); N17.0 Acute kidney failure with tubular necrosis; K21.9 Gastro-esophageal reflux disease without esophagitis; M54.9 Dorsalgia, unspecified; G89.29 Other chronic pain; E03.9 Hypothyroidism, unspecified; K59.00 Constipation, unspecified; M62.830 Muscle spasm of back; F32.9 Major depressive disorder, single episode, unspecified; W01.0XXA Fall on same level from slipping, tripping and stumbling without subsequent striking against object, initial encounter; Y93.89 Activity, other specified; Z90.49 Acquired absence of other specified parts of digestive tract; Y92.89 Other specified places as the place of occurrence of the external cause; Y99.8 Other external cause status; Z98.84 Bariatric surgery status; Z80.3 Family history of malignant neoplasm of breast; Z80.49 Family history of malignant neoplasm of other genital organs; Z82.49 Family history of ischemic heart disease and other diseases of the circulatory system
CPT/HCPCS: 36415; 70450; 71045; 72125; 76000; 80048; 80053; 82550; 85025; 85610; 85730; 93005; 99285; C1713; G0378; J0690; J1100; J1644; J1650; J2250; J2405; J3010; J0330; J2270; J7030; J7040

== ENCOUNTER → 2019-05-18 | Outpatient (CLI) | payer MEDICARE, MEDICAID ==
[~2019-05-18] MED LIST changes: +BACL-19 PO; +FLUO40CA2 PO; +HYDR-3245 PO; +OXYC5TAB2 PO; +SUCR1TAB33 PO
== END | disposition home or self-care (01) ==
LOC: RAD 12:43
PROVIDERS: ATTEND Orthopaedic Surgery
DX: S72.142D Displaced intertrochanteric fracture of left femur, subsequent encounter for closed fracture with routine healing (principal); R60.0 Localized edema; X58.XXXD Exposure to other specified factors, subsequent encounter